=== PATIENT | male | born 1990 | race Two or more races ===

== ENCOUNTER 2018-05-28 08:43 | Emergency (ER) | payer OTHER ==
--- NOTE | 2018-05-28 09:13 | EDPHY ---
H & P Stated Complaint: Head injury--metal tube hit head --lac--no LOC Time Seen by Provider: 05/28/18 09:06 HPI/ROS: HPI: This is a 28-year-old male who presents with Chief Complaint: Head injury--metal tube hit head --lac--no LOC Location: Head Quality: Injury Duration: Prior to arrival Signs and Symptoms: + bleeding, no radiation, no numbness, no weakness, no tingling, no incontinence, no decreased range of motion, no swelling, no pain, no fever, no LOC Timing: Acute Severity: [id number] Context: Patient was at his job when a metal pipe accidentally hit him on the left side of his head. Denies LOC/neck pain/dizziness/nausea/vomiting/amnesia. Tetanus is current. He did not get knocked down her fall to the ground. He noted that it started to bleed immediately and he took his shirt and applied direct pressure. Reports that he has a mild headache that is nonradiating in nature. History of concussions in the past. Does not take any blood thinners. Modifying Factors: Direct pressure Comment: ROS: A comprehensive 10 system review of systems is otherwise negative aside from elements mentioned in the history of present illness. MEDICAL/SURGICAL/SOCIAL HISTORY: Medical history: Generally healthy. Does not take any regular medications. Surgical history: Denies Social history: Never smoked. Employed. CONSTITUTIONAL: Well-developed, well-nourished, adult male, awake and alert, no obvious distress HEENT: 6 in irregular deep laceration to the left parietal scalp and normocephalic, PERRL, EOMI. no globe entrapment, no raccoon eyes. no Nieves signs.Tympanic membranes clear. No tympanic membrane rupture. Nares patent; no septal hematoma. Oropharynx clear, no exudate and moist pink mucosa. No malocclusion. no dental trauma. Airway patent. No lymphadenopathy. NECK: supple, no midline tenderness, flexion 45 degrees, extension 45 degrees, right and left lateral flexion 45 degrees. No meningismus. Cardiovascular: Normal S1/S2, regular rate, regular rhythm, without murmur rub or gallop. PULMONARY/CHEST: Symmetrical and nontender. no crepitus. Clear to auscultation bilaterally. Good air movement. No accessory muscle usage. ABDOMEN: Soft, nondistended, nontender, no ecchymosis, no rebound, no guarding , no peritoneal signs, no masses or organomegaly. No CVAT. PELVIC: no pain with rocking; bilateral hips flexion 125 degrees, extension 30 degrees, with no pain internal rotation and no pain external rotation. BACK: No midline tenderness, no paraspinous spasm, deep tendon reflexes 2/2, no pain with straight leg raise EXTREMITIES: 2/2 pulses, no deformities, no clubbing, no cyanosis or edema. NEUROLOGICAL: no focal neuro deficits. GCS 15. SKIN: Warm and dry, no erythema. no rash. Good capillary refill. Source: Patient Exam Limitations: No limitations - Personal History Current Tetanus/Diphtheria Vaccine: Yes Current Tetanus Diphtheria and Acellular Pertussis (TDAP): Yes Tetanus Vaccine Date: 2013 - Medical/Surgical History Hx Asthma: No Hx Chronic Respiratory Disease: No Hx Diabetes: No Hx Cardiac Disease: No Hx Renal Disease: No Hx Cirrhosis: No Hx Alcoholism: No Hx HIV/AIDS: No Hx Splenectomy or Spleen Trauma: No Other PMH: DENIES - Social History Smoking Status: Never smoked Constitutional: Initial Vital Signs Temperature (C) 36.5 C 05/28/18 08:54 Heart Rate 86 05/28/18 08:54 Respiratory Rate 16 05/28/18 08:54 Blood Pressure 138/88 H 05/28/18 08:54 O2 Sat (%) 97 05/28/18 08:54 O2 Delivery Mode Room Air Allergies/Adverse Reactions: No Known Allergies Allergy (Unverified 05/28/18 08:54) Home Medications: Medication Instructions Recorded NK [No Known Home Meds] 05/28/18 Medical Decision Making Procedures: Procedure: Laceration repair. Verbal consent was obtained from the patient. The 6 inch, irregular, deep, simple laceration on the left parietal scalp was anesthetized in the usual fashion using 6 mL of 1% lidocaine with epinephrine. The wound was irrigated, draped and explored to its base with a gloved finger. There were no deep structures involved. No tendon injury was identified. The wound was repaired with #11 charlotte. Good hemostasis was achieved and bacitracin applied. The procedure was performed by myself. ED Course/Re-evaluation: Vital signs reviewed and stable upon arrival. Tetanus is up-to-date. Local anesthesia provided and irrigated copiously Laceration closed with charlotte Verbal and written wound care instructions provided Based on nexus protocol, head CT imaging not indicated. No signs of neurovascular compromise/tenting of skin/compartment syndrome/ extremities and joints examined above and below area of concern and are neurovascularly intact/concussion. This patient was seen under the supervision of my secondary supervising physician. I evaluated care for this patient independently. Differential Diagnosis: Head injury including but not limited to concussion, skull fracture, intraparenchymal contusion, subarachnoid, subdural and epidural hematoma. Departure - Departure Disposition: Home, Routine, Self-Care Clinical Impression: Laceration of scalp without complication Qualifiers: Encounter type: initial encounter Qualified Code(s): S01.01XA - Laceration without foreign body of scalp, initial encounter Condition: Good Instructions: Laceration (ED), Staple Care (ED) Additional Instructions: Keep the laceration dry for 48 hours. After 48 hours, you may wash the site daily with mild soap and water; then pat dry and apply topical antibiotic ointment daily. Take Tylenol 650 mg every 4 hours and/or Ibuprofen 600 mg every 8 hours with food as needed for pain. Apply ice for 30 minutes at a time; 2-3 times per day for the next 1-2 days. Wound Care Follow-Up: Removal of charlotte in [ 7 ] days. Staple removal is complimentary in uncomplicated cases. Infection or abnormal findings would require reevaluation by the MD. In that case, you may be billed. You sustained a closed head injury. Please do not participate in any contact sports or moderate and strenuous activity until all symptoms have resolved or cleared by PCP/Concussion Clinic. Return to the ER immediately if you have progressive headaches, neurologic deficits, gait abnormality, visual disturbance, slurred speech, or any other symptom that concerns you. Referrals: [facility],. [Clinic] - As per Instructions Stand Alone Forms: Work Comp Follow Up Print Language: Panamanian
[2018-05-28 10:01] VITALS: BP 133/92
== END 2018-05-28 09:59 | disposition home or self-care (01) ==
PROC: 0HQ0XZZ Repair Scalp Skin, External Approach (ICD-10-PCS; principal; 2018-05-28)
DX: S01.01XA Laceration without foreign body of scalp, initial encounter (principal); W22.8XXA Striking against or struck by other objects, initial encounter; Y92.61 Building [any] under construction as the place of occurrence of the external cause; Y99.0 Civilian activity done for income or pay